=== PATIENT | male | born 1985 | race Caucasian/White ===

== ENCOUNTER 2018-04-22 16:43 | Emergency (ER) | payer BC, SELFPAY ==
[2018-04-22 16:44] VITALS: BP 160/109; PULSE 86; RESP 16; TEMP 36.8; O2SAT 98; BMI 26.6
--- NOTE | 2018-04-22 17:05 | ED.DCSUM_ITS ---
- ER Visit Summary Date of Service: 04/22/18 Chief Complaint: Allergic reaction History of Present Illness: The patient is a 33 M who took ibuprofen Liqui-Gels around 3 PM today. Proximal me 45 minutes later he noted hives to his face, trunk, and extremities. He has mild tongue fullness. He denied any difficulty with swallowing. He went to a local pharmacy and took 3 tabs of Benadryl around 4:10 PM. He does report having mild hives in the past with ibuprofen. Physical Examination: Vital signs significant for blood pressure 160/109, otherwise unremarkable. Patient is sitting upright in bed no acute distress. He speaking full sentences and tolerating secretions well. Head neck examination reveals no obvious tongue or lip edema. No posterior pharyngeal fullness. Heart is regular rate and rhythm. Lung sounds are clear with no wheezes. Abdomen is soft nontender. Skin examination does reveal hives to his face, trunk, and extremities. Test Results: [] Emergency Department Course and Treatment: Patient took Benadryl prior to arrival but was given famotidine and Solu-Medrol. He was rechecked multiple times over the next hour and a half. Hives have continued to improve and are finally cleared at this time. He has no difficulty with swallowing or tongue fullness. He is prescribed Benadryl, Pepcid, prednisone, and an EpiPen if needed. Treatment Plan: [] Disposition: Discharge Impression: Allergic drug reaction This note was generated with [employer] dictation software. It may contain incorrect words, spelling, and punctuation that were not noted in review of the chart prior to signing ED Disposition - Plan for ED Patient: Disposition: Home or Assisted Living Chief Complaint: Allergic Reaction Instructions: ED Drug React Allergic Prescriptions: DiphenhydrAMINE [Benadryl] 50 mg PO TID PRN PRN #14 capsule PRN Reason: Pruritis Epinephrine [Epi Pen] 0.3 mg IM X1 PRN #1 syringe PRN Reason: Anaphylaxis predniSONE tablet 60 mg PO DAILY #15 tablet Famotidine [Pepcid] 20 mg PO BID #28 tablet Additional Instructions: Follow-up with your clay hoister as scheduled.
[2018-04-22] MEDS: MethylPREDNISolone 125 MG/2 ML Vial IV (17:08)
[2018-04-22] MEDS: Famotidine 20mg IV Push Syringe Q12 300 MG IV (17:35)
[2018-04-22 19:11] VITALS: BP 150/89
--- NOTE | 2018-04-22 19:23 | ED.DEP ---
ED Disposition - Plan for ED Patient: Disposition: Home or Assisted Living Chief Complaint: Allergic Reaction Instructions: ED Drug React Allergic Prescriptions: DiphenhydrAMINE [Benadryl] 50 mg PO TID PRN PRN #14 capsule PRN Reason: Pruritis Epinephrine [Epi Pen] 0.3 mg IM X1 PRN #1 syringe PRN Reason: Anaphylaxis predniSONE tablet 60 mg PO DAILY #15 tablet Famotidine [Pepcid] 20 mg PO BID #28 tablet Additional Instructions: Follow-up with your reagent tender helper as scheduled.
--- NOTE | 2018-04-22 19:28 | DCINST.ED_ITS ---
ED Disposition - Plan for ED Patient: Disposition: Home or Assisted Living Chief Complaint: Allergic Reaction Instructions: ED Drug React Allergic Prescriptions: DiphenhydrAMINE [Benadryl] 50 mg PO TID PRN PRN #14 capsule PRN Reason: Pruritis Epinephrine [Epi Pen] 0.3 mg IM X1 PRN #1 syringe PRN Reason: Anaphylaxis predniSONE tablet 60 mg PO DAILY #15 tablet Famotidine [Pepcid] 20 mg PO BID #28 tablet Additional Instructions: Follow-up with your cleaner furniture as scheduled.
[2018-04-22 19:35] VITALS: BP 148/92; PULSE 89; RESP 22; O2SAT 97
== END 2018-04-22 19:35 | disposition home or self-care (01) ==
PROVIDERS: Emergency Provider Emergency Medicine
DX: L50.0 Allergic urticaria (principal); T39.315A Adverse effect of propionic acid derivatives, initial encounter; Y92.9 Unspecified place or not applicable; F41.9 Anxiety disorder, unspecified; Z72.0 Tobacco use
CPT/HCPCS: 96374; 96375; 99284; A4216; J3490

== ENCOUNTER → 2018-10-07 | Outpatient (CLI) | payer BC, SELFPAY ==
[2018-10-07 08:54] VITALS: BMI 24.4
[2018-10-07 11:19] LABS: Anion Gap 1 (5-15); BUN 18 mg/dL (7-18); BUN/Creat Ratio 15.3 RATIO (10-20); Calcium,Total 9.3 mg/dL (8.5-10.1); Chloride 107 mmol/L (98-107); Creatinine, Serum 1.18 mg/dL (0.70-1.30); EST Glomerular Filtration Rate 76 mL/min (>60); Est Glom Filt Rate - Afr Amer 92 mL/min (>60); Glucose 98 mg/dL (74-106); Potassium 4.9 mmol/L (3.5-5.1); Sodium Level 136 mmol/L (136-145); Thyroid Stim Hormone (TSH) 1.09 uIU/mL (0.358-3.74)
== END | disposition home or self-care (01) ==
LOC: LAB 09:41
PROVIDERS: Referring Provider Internal Medicine Cardiovascular Disease; Visit Provider Internal Medicine Cardiovascular Disease
DX: R03.0 Elevated blood-pressure reading, without diagnosis of hypertension (principal)
CPT/HCPCS: 36415; 80048; 84443

== ENCOUNTER → 2019-02-15 08:47 | Outpatient (CLI) | payer BC, SELFPAY ==
[2019-02-15 08:02] VITALS: BMI 24.4
[2019-02-15 09:34] LABS: Anion Gap 7 (5-15); BUN 19 mg/dL (7-18); Calcium,Total 9.3 mg/dL (8.5-10.1); Chloride 103 mmol/L (98-107); Creatinine, Serum 1.27 mg/dL (0.70-1.30); EST Glomerular Filtration Rate 70 mL/min (>60); Est Glom Filt Rate - Afr Amer 85 mL/min (>60); Glucose 104 mg/dL (74-106); Potassium 4.1 mmol/L (3.5-5.1); Sodium Level 140 mmol/L (136-145)
== END ==
PROVIDERS: Referring Provider Internal Medicine Cardiovascular Disease; Visit Provider Internal Medicine Cardiovascular Disease
DX: L50.9 Urticaria, unspecified (principal); R00.2 Palpitations; R03.0 Elevated blood-pressure reading, without diagnosis of hypertension
CPT/HCPCS: 36415; 80048

== ENCOUNTER → 2021-11-13 | Outpatient (CLI) | payer BC, SELFPAY ==
[2021-11-13 09:26] LABS: AST(SGOT) 27 U/L (15-37); Alanine Aminotransfer ALT/SGPT 30 U/L (16-61); Albumin, Serum 4.1 g/dL (3.2-5.0); Alkaline Phosphatase 57 U/L (45-117); Anion Gap 10 (5-15); BUN 20 mg/dL (7-18); BUN/Creat Ratio 16.7 RATIO (10-20); Bilirubin, Direct 0.21 mg/dL (0.00-0.30); Calcium,Total 9.2 mg/dL (8.5-10.1); Chloride 102 mmol/L (98-107); Cholesterol 214 mg/dL (200); EST Glomerular Filtration Rate 73 mL/min (>60); Est Glom Filt Rate - Afr Amer 89 mL/min (>60); Globulin 3.6 g/dL (2.2-4.2); Glucose 100 mg/dL (74-106); High Density Lipoprotein 88 mg/dL; Potassium 4.2 mmol/L (3.5-5.1); Protein, Total 7.7 g/dL (6.4-8.2); Sodium Level 138 mmol/L (136-145); Triglycerides 59 mg/dL; Very Low Density Lipoprotein 12 mg/dL (5-40)
== END | disposition home or self-care (01) ==
LOC: LAB 08:33
PROVIDERS: Referring Provider Internal Medicine Cardiovascular Disease; Visit Provider Internal Medicine Cardiovascular Disease
DX: I10 Essential (primary) hypertension (principal)
CPT/HCPCS: 36415; 80048; 80061; 80076